=== PATIENT | female | born 1975 | race Caucasian/White ===

== ENCOUNTER 2016-12-16 11:01 | Inpatient (IN) | payer BC ==
[2016-12-15 13:42] VITALS: BMI 33.0
[~2016-12-16] VITALS: Ht 165.1 cm; Wt 87.9 kg
[2016-12-16] VITALS (27 sets, daily range): BP systolic 98–123; BP diastolic 58–79; PULSE 84–104; RESP 7–25; Ht 165.1 cm; Wt 87.9 kg
[~2016-12-16 11:01] MED LIST: CEFAZOLIN 2 GM/50 ML (PMX) 50 ML IVPB SCH; CEPH500C; D5-NS + KCL 20 MEQ 1,000 ML IV SCH; FERR-49; FLUO40CA; GEMF600T60; Metronidazole 500 MG in NS 100 ML IVPB SCH; SIMV20TA; VALA500T32
[2016-12-16] MEDS ORDERED: METHYLENE BLUE 1% 10 ML INJ ONE (12:42)
[2016-12-16] MEDS ORDERED: THROMBIN 5000 UNIT VIAL ONE (12:42)
[2016-12-16] MEDS ORDERED: VASOPRESSIN 20 UNITS INJ ONE (12:42)
[2016-12-16] MEDS ORDERED: ASC500 PO (12:54)
[2016-12-16] MEDS ORDERED: DOCU50CA PO (12:54)
[2016-12-16] MEDS ORDERED: ACYC400T2 PO (12:54)
[2016-12-16] MEDS ORDERED: ROCURONIUM 50 MG INJ ONE ×2 (13:15→14:34)
[2016-12-16] MEDS ORDERED: MIDAZOLAM 1 MG/ML 2 ML INJ ONE (13:15)
[2016-12-16] MEDS ORDERED: PROPOFOL 20 ML ONE (13:15)
[2016-12-16] MEDS ORDERED: METOCLOPRAMIDE 10 MG INJ ONE (13:15)
--- NOTE | 2016-12-16 13:21 | HPN ---
Date/Time of Note Date/Time of Note DATE: 12/16/16 TIME: 13:21 Interval H&P Admission Note Pt. seen H&P reviewed: No system changes MAX KAPADIA MD Dec 16, 2016 13:21
--- NOTE | 2016-12-16 13:30 | HP ---
Date/Time of Note Date/Time of Note DATE: 12/16/16 TIME: 13:28 Assessment/Plan VTE Prophylaxis VTE Prophylaxis Intervention: SCD's Lines/Catheters IV [facility]from [facility] Saline Lock HPI/ROS Admit Date/Time Admit Date/Time Hx of Present Illness Shawn Kapadia M.D. [facility] History and Physical Examination Elisabeth Yang December 13, 2016 Age: 41 : 1975 Physicians: Hospital Cna: Nurse Sitter: Oncologist: Other: History of the Present Illness: This is a 41 y/o female with known fibroids that are symptomatic with mneorrhagia and pain. Pap are HPV/LGSIL and negative bx. Past Medical History: G 4 P 4 Ab 0 Surgical: D&C 04/2016, Gallbladder 2008, TL 2005 Colonoscopy: never Medical: Depression Medications: 11/02/16 acyclovir 200 mg capsule 1 capsule by mouth TID 11/02/16 gemfibrozil 600 mg tablet 1 tablet by mouth BID 11/02/16 iron, carbonyl 18 mg iron chewable tablet 1 tablet by mouth DAILY Flu no, declined, Pneumococcal no, declined Allergies: No active allergies recorded Family History: Noncontributory Social History: Noncontributory Review of Systems: Negative except for above noted Physical Examination Vitals (12/13/2016): Weight 203, Height 65, BP 116/70, BMI 33.8. General: Alert. HEENT: Pupils are equal, round, reactive to light and accommodation. Neck: Supple with no masses of lymphadenopathy. Breast: Deferred due to recent examination and responsibility of primary care physician. Chest: Clear to auscultation and percussion with no rales, ronchi, or wheeze. Heart: Normal rhythm with no murmur. Abdomen: NT no mass or ascites of organomegaly Pelvis: Uterus enlarged with 12-14 wk fibroids. Cx irregular and sl friable Rectal: confirmatory with pelvic exam. Neurological: Grossly intact Assessment: symptomatic fibroids and LGSI/HPV Plan: Cx bx and as negative: TLH possible USO or BSO. All risks and benefits of this procedure have been discussed in detail with the patient, as well as alternative treatment strategies and their implications. The patient is aware that there is some possibility of a blood transfusion and its associated risks and benefits. She wishes to proceed and gives her informed consent. Shawn Kapadia M.D. PMH/Family/Social Social History Smoking Status: Never smoker Exam/Review of Systems Vital Signs Vitals Vital Signs Date Time Temp Pulse Resp B/P Pulse Ox O2 Delivery O2 Flow Rate FiO2 12/16/16 12:37 98.1 92 16 121/77 99 Room Air Medications Medications Current Medications Potassium Chloride/Dextrose/ Sod Cl 1,000 ml @ 100 mls/hr Q10H IV ; Start at 06:00; Stop 12/16/16 at 15:59 Cefazolin Sodium/ Dextrose 50 ml @ 100 mls/hr PREOP IVPB ; Start 12/16/16 at 06: 00; Stop 12/16/16 at 16:00 Metronidazole (Flagyl 500 Mg (Pmx)) 100 ml @ 100 mls/hr PREOP IVPB ; Start 12/16 at 06:00; Stop 12/16/16 at 16:00 SHAWN KAPADIA MD Dec 16, 2016 13:30
[2016-12-16] MEDS ORDERED: CEFAZOLIN 1 GM INJ ONE ×2 (14:07)
[2016-12-16] MEDS ORDERED: morphine SULFATE/PF (10 MG/10 ML) INJ ONE (14:07)
[2016-12-16] MEDS ORDERED: HYDROmorphONE 2 MG/ML SYG ONE (14:58)
[2016-12-16] MEDS ORDERED: LIDOCAINE 2%/EPI 30 ML INJ ONE (14:58)
[2016-12-16] MEDS ORDERED: METOPROLOL 5 MG INJ ONE (15:09)
[2016-12-16] MEDS ORDERED: ONDANSETRON 4 MG INJ IV PRN ×3 (16:00→18:00)
[2016-12-16] MEDS ORDERED: METOCLOPRAMIDE 10 MG INJ IV PRN (16:00)
[2016-12-16] MEDS ORDERED: hydrALAzine 20 MG INJ IV PRN (16:00)
[2016-12-16] MEDS ORDERED: LABETALOL HCL 20MG INJ IV PRN (16:00)
[2016-12-16] MEDS ORDERED: EPHEDrine SULFATE 50 MG/5 ML SYG IV PRN (16:00)
[2016-12-16] MEDS ORDERED: MEPERIDINE 25 MG INJ IV PRN (16:00)
[2016-12-16] MEDS ORDERED: DIPHENHYDRAMINE 50 MG INJ IV PRN (16:00)
[2016-12-16] MEDS ORDERED: HYDROmorphONE (0.2 MG/ML) 10ML SYG IV PRN ×2 (16:00)
[2016-12-16] MEDS ORDERED: KETOROLAC 30 MG INJ ONE (16:15)
[2016-12-16] MEDS ORDERED: GLYCOPYRROLATE 0.4 MG INJ ONE (16:15)
[2016-12-16] MEDS ORDERED: NEOSTIGMINE 3 MG/3 ML SYRINGE ONE (16:15)
[2016-12-16] MEDS ORDERED: ROPIVACAINE 0.5 % 30 ML VIAL ONE (16:29)
[2016-12-16] MEDS: HYDROmorphONE (0.2 MG/ML) 10ML SYG IV PRN ×3 (17:26→18:15)
[2016-12-16] MEDS ORDERED: HYDROmorphONE 0.2 MG/ML PCA ONE (17:50)
[2016-12-16] MEDS: HYDROmorphONE 0.2 MG/ML PCA IV SCH (17:56)
[2016-12-16] MEDS ORDERED: traMADol 50 MG TAB PO PRN (18:00)
[2016-12-16] MEDS ORDERED: ACETAMINOPHEN/CODEINE #3 TAB PO PRN ×2 (18:00)
[2016-12-16] MEDS ORDERED: NALOXONE (0.4 MG/ML) INJ IV PRN (18:00)
[2016-12-16] MEDS ORDERED: HYDROmorphONE 1 MG/ML SYG IV PRN ×3 (18:00)
[2016-12-16] MEDS ORDERED: morphine 2 MG INJ IV PRN (18:00)
[2016-12-16] MEDS ORDERED: ZOLPIDEM 5 MG TAB PO PRN (18:00)
[2016-12-16] MEDS: GEMFIBROZIL 600 MG TAB PO SCH (21:10)
[2016-12-16] MEDS: D5-LR + KCL 20 MEQ 1,000 ML IV SCH (21:20)
[2016-12-16] MEDS: CEFAZOLIN 1 GM/50 ML (PMX) 50 ML IVPB SCH (22:33)
[2016-12-17 01:45] VITALS: BP 114/60; PULSE 96; RESP 19
[2016-12-17 04:57] VITALS: BP 104/58; RESP 16
[2016-12-17] MEDS: D5-LR + KCL 20 MEQ 1,000 ML IV SCH ×2 (06:00→08:11)
[2016-12-17] MEDS: CEFAZOLIN 1 GM/50 ML (PMX) 50 ML IVPB SCH ×2 (06:36→13:44)
--- NOTE | 2016-12-17 07:40 | CONS ---
DATE OF ADMISSION: 12/16/2016 DATE OF CONSULTATION: 12/16/2016 Patient seen & chart reviewed. CC & HISTORY OF PRESENT ILLNESS: The patient is a 41-year-old female with history of known uterine fibroids, with a history of menorrhagia, lower abdominal pain and anemia, who was brought into the hospital today for elective laparoscopic hysterectomy. Patient postoperatively is breathing comfortably. Denies any chest pain. The patient is awake and responsive. No reported vomiting or shortness of breath since admission. Patient denies any numbness, tingling, or weakness in any extremity. PHYSICAL EXAMINATION GENERAL: The patient is awake. VITAL SIGNS: Temperature 98.1, pulse 92, respiratory rate 18, blood pressure 113/68, O2 saturation 100% on 2 L nasal cannula. HEENT: No eye discharge. Oropharynx clear. NECK: No mass. CHEST: Fairly clear. CARDIOVASCULAR: S1, S2 normal. No murmur. ABDOMEN: Status post laparoscopic hysterectomy. EXTREMITIES: No leg edema. NEUROLOGIC: Awake, moves all extremities and following simple commands. PREOPERATIVE LABORATORIES: Revealed a negative urine test, WBC 8.4, hemoglobin 12.1, platelets 453. Coagulation profile normal. Sodium 141, potassium 4.1, BUN 12, creatinine 0.6, glucose 94. TSH 0.9 PREOPERATIVE ELECTROCARDIOGRAM: Revealed normal sinus rhythm. No acute ST-T changes. CHEST X-RAY: Revealed scoliosis; otherwise, unremarkable. IMPRESSION 1. Symptomatic fibroids, status post laparoscopic hysterectomy. 2. Depression. 3. History of recent right eye cellulitis, status post treatment. 4. History of recurrent Herpes labialis, currently off acyclovir. 5. Dyslipidemia. The patient has been taking Lopid for that. PLAN: Patient admitted on medical floor. The patient was started on a clear liquid diet. The patient will receive IV cefazolin as per protocol. The patient also received IV Flagyl. Patient has been started on Tylenol No. 3, IV Dilaudid for pain depending upon severity. The patient is currently taking Lopid and fluoxetine, which will be resumed. Continue postop care. We will continue SCDs for DVT prophylaxis. We will continue to follow from a medical standpoint. Dictated By: VANDANA OCASIO/KIRSTEN Conf#: [id number] DID#: [id number] [facility]
[2016-12-17 07:55] VITALS: BP 97/55; RESP 20
[2016-12-17] MEDS: GEMFIBROZIL 600 MG TAB PO SCH ×2 (08:13→20:41)
[2016-12-17] MEDS: FLUOXETINE 20 MG CAP PO SCH (08:13)
[2016-12-17] MEDS: HYDROmorphONE 0.2 MG/ML PCA IV SCH ×2 (09:26→19:26)
[2016-12-17] MEDS: LEVALBUTEROL (NEB) 1.25 MG/0.5 ML AMP HHN SCH ×3 (12:30→23:00)
--- NOTE | 2016-12-17 12:41 | PN ---
DATE: 12/17/2016 INTERVAL HISTORY: The patient had mild hypoxemia earlier this morning which responded to supplement al oxygen. The patient reports that she has history of asthma, but uses inhaler rarely. Patient is currently not actively wheezing, although nurse did report that earlier she had mild wheezing. Madhuri loev did not have any chest pain, no neck pain. The patient's postoperative pain is controlled with the METALLURGICAL TESTER. No reported vomiting. PHYSICAL EXAMINATION: GENERAL: The patient is conscious, awake, alert. VITAL SIGNS: Temperature 99, pulse 105, respirations 20, blood pressure 97/55, O2 saturation 94% on 2 liters nasal cannula. NECK: No JVD. CHEST: Fairly clear. No use of accessory muscles. CARDIOVASCULAR: S1, S2 normal. No murmur. ABDOMEN: The patient is status post laparoscopic hysterectomy. EXTREMITIES: No pedal edema, no calf tenderness. SCDs in place. IMPRESSION: 1. Symptomatic uterine fibroids status post laparoscopic hysterectomy. 2. History of asthma. We will start the patient on around the clock breathing treatment. Continue sequential compression devices for deep vein thrombosis prophylaxis. 3. Depression. Continue fluoxetine. 4. Dyslipidemia. Continue Lopid. The patient remains on clear liquid diet. We will continue to f ollowup recommendations of Dr. Emery. Plan of care discussed with nursing staff. We will do followup labs. Dictated By: VANDANA OCASIO/KIRSTEN Conf#: [id number] DID#: [id number]
--- NOTE | 2016-12-17 13:34 | PN ---
Date/Time of Note Date/Time of Note DATE: 12/17/16 TIME: 13:30 Assessment/Plan VTE Prophylaxis VTE Prophylaxis Intervention: ambulation Lines/Catheters IV Catheter Type (from Nrsg): Saline Lock Urinary Cath still in place: No Subjective 24 Hr Interval Summary Free Text/Dictation Anesthesia Note: A 41 year old s/p lap hysterectomy under GA and epidural with duramorph. no headache, n/v, itching. on STRIP MACHINE TENDER, paain is controlled Exam/Review of Systems Vital Signs Vitals Vital Signs Date Time Temp Pulse Resp B/P Pulse Ox O2 Delivery O2 Flow Rate FiO2 12/17/16 11:53 Nasal Cannula 2.0 12/17/16 07:55 99.0 105 20 97/55 94 Intake and Output 12/16/16 12/16/16 12/17/16 15:00 23:00 07:00 Intake Total 1850 ml 1250 ml Output Total 500 ml 250 ml Balance 1350 ml 1000 ml Medications Medications Current Medications Tramadol HCl 50 mg 50 mg Q6H PRN PO PAIN; Start 12/16/16 at 18:00 Potassium Cl/ Dextrose/Lact Ringer's (D5-Lr + KCl 20 Meq) 1,000 ml @ 60 mls/hr [id number] IV Last administered on 12/17/16 08:11; Admin Dose 60 MLS/HR; Start 12/17/16 at 08:00 Naloxone HCl (Narcan) 0.2 mg PRN PRN IV DECREASED REPIRATORY RATE; Start at 18:00 Hydromorphone HCl (Dilaudid STRIP MACHINE TENDER) 0.2 mg Q4PCA IV Last administered on 12/17/16 09:26; Admin Dose 6 MG; Start 12/16/16 at 18:00 Acetaminophen/ Codeine Phosphate (Tylenol No.3) 1 tab Q4H PRN PO PAIN LEVEL 1-5 ; Start 12/16/16 at 18:00 Acetaminophen/ Codeine Phosphate (Tylenol No.3) 2 tab Q4H PRN PO PAIN LEVEL 6- 10; Start 12/16/16 at 18:00 Hydromorphone HCl (Dilaudid) 1 mg Q3 PRN IV BREAKTHROUGH PAIN; Start 12/16/16 at 18:00 Hydromorphone HCl (Dilaudid) 0.2 mg Q4H PRN IV PAIN LEVEL 1-5; Start 12/16/16 at 18:00 Hydromorphone HCl (Dilaudid) 0.4 mg Q4H PRN IV PAIN LEVEL 6-10; Start 12/16/16 at 18:00 Ondansetron HCl 4 mg 4 mg Q6H PRN IV NAUSEA AND/OR VOMITING; Start 12/16/16 at 18:00 Cefazolin Sodium (Ancef 1 Gm/50 ml (Pmx)) 50 ml @ 100 mls/hr Q8 IVPB Last administered on 12/17/16 06:36; Admin Dose 100 MLS/HR; Start 12/16/16 at 22:00; Stop 12/17/16 at 14:29 Ondansetron HCl (Zofran Inj) 4 mg Q6H PRN IV NAUSEA AND/OR VOMITING; Start 12/16 at 18:00 Fluoxetine HCl (Prozac) 60 mg DAILY PO Last administered on 12/17/16 08:13; Admin Dose 60 MG; Start 12/17/16 at 09:00 Gemfibrozil (Lopid) 600 mg BID PO Last administered on 12/17/16 08:13; Admin Dose 600 MG; Start 12/16/16 at 21:00 PORTIA RAGLAND MD Dec 17, 2016 13:34
--- NOTE | 2016-12-17 16:17 | PN ---
Date/Time of Note Date/Time of Note DATE: 12/17/16 TIME: 16:10 Assessment/Plan VTE Prophylaxis VTE Prophylaxis Intervention: SCD's Lines/Catheters [facility] Saline Lock Urinary Cath still in place: No Assessment/Plan Chief Complaint/Hosp Course fibroids Problems: Assessment/Plan see below Subjective 24 Hr Interval Summary Free Text/Dictation S- - Minimal SOB due to asthma and no definite flatus. Minimally OOB. O- Resp- clear CVS- nsr Abd- - soft nt Ext NT no edema A-Gradual recovery due to baseline medical issues P- mobilize and adv diet and hope top dc tomorrow Exam/Review of Systems Vital Signs Vitals Vital Signs Date Time Temp Pulse Resp B/P Pulse Ox O2 Delivery O2 Flow Rate FiO2 12/17/16 14:19 77 20 99 Nasal Cannula 2.0 12/17/16 07:55 99.0 97/55 Intake and Output 12/16/16 12/16/16 12/17/16 15:00 23:00 07:00 Intake Total 1850 ml 1250 ml Output Total 500 ml 250 ml Balance 1350 ml 1000 ml Medications Medications Current Medications Tramadol HCl 50 mg 50 mg Q6H PRN PO PAIN; Start 12/16/16 at 18:00 Potassium Cl/ Dextrose/Lact Ringer's (D5-Lr + KCl 20 Meq) 1,000 ml @ 60 mls/hr [id number] IV Last administered on 12/17/16 08:11; Admin Dose 60 MLS/HR; Start 12/17/16 at 08:00 Naloxone HCl (Narcan) 0.2 mg PRN PRN IV DECREASED REPIRATORY RATE; Start at 18:00 Hydromorphone HCl (Dilaudid LOCK EXPERT) 0.2 mg Q4PCA IV Last administered on 12/17/16 09:26; Admin Dose 6 MG; Start 12/16/16 at 18:00 Acetaminophen/ Codeine Phosphate (Tylenol No.3) 1 tab Q4H PRN PO PAIN LEVEL 1-5 ; Start 12/16/16 at 18:00 Acetaminophen/ Codeine Phosphate (Tylenol No.3) 2 tab Q4H PRN PO PAIN LEVEL 6- 10; Start 12/16/16 at 18:00 Hydromorphone HCl (Dilaudid) 1 mg Q3 PRN IV BREAKTHROUGH PAIN; Start 12/16/16 at 18:00 Hydromorphone HCl (Dilaudid) 0.2 mg Q4H PRN IV PAIN LEVEL 1-5; Start 12/16/16 at 18:00 Hydromorphone HCl (Dilaudid) 0.4 mg Q4H PRN IV PAIN LEVEL 6-10; Start 12/16/16 at 18:00 Ondansetron HCl (Zofran Inj) 4 mg Q6H PRN IV NAUSEA AND/OR VOMITING; Start 12/16 at 18:00 Ondansetron HCl (Zofran Inj) 4 mg Q6H PRN IV NAUSEA AND/OR VOMITING; Start 12/16 at 18:00 Fluoxetine HCl (Prozac) 60 mg DAILY PO Last administered on 12/17/16 08:13; Admin Dose 60 MG; Start 12/17/16 at 09:00 Gemfibrozil (Lopid) 600 mg BID PO Last administered on 12/17/16 08:13; Admin Dose 600 MG; Start 12/16/16 at 21:00 MAX KAPADIA MD Dec 17, 2016 16:17
[2016-12-17 19:59] VITALS: BP 112/65; RESP 20
[2016-12-17] MEDS ORDERED: ONDANSETRON 4 MG INJ IV PRN (23:00)
[2016-12-17] MEDS ORDERED: ZOLPIDEM 5 MG TAB PO PRN (23:30)
[2016-12-17] MEDS: ACETAMINOPHEN 650MG/20.3ML CUP PO PRN (23:38)
[2016-12-17] MEDS: metroNIDAZOLE 500 MG/NS (PMX) 100 ML IVPB SCH (23:41)
[2016-12-17] MEDS: morphine 2 MG INJ IV PRN (23:46)
[2016-12-18] MEDS: LEVOFLOXACIN 750MG/D5W (PMX) 150 ML IVPB SCH ×2 (00:48→20:53)
[2016-12-18] MEDS: D5-LR + KCL 20 MEQ 1,000 ML IV SCH ×3 (00:48→23:37)
[2016-12-18 05:33] LABS: ADD SCAN DIFF NO
[2016-12-18] MEDS: metroNIDAZOLE 500 MG/NS (PMX) 100 ML IVPB SCH ×3 (05:47→22:33)
[2016-12-18 06:00] LABS: POTASSIUM 3.3 mmol/L (3.5-5.1)
[2016-12-18 06:03] LABS: CREATININE 0.5 mg/dl (0.44-1.00)
[2016-12-18 06:04] LABS: CALCIUM 8.4 mg/dl (8.4-10.2)
[2016-12-18 06:09] LABS: BASOPHILS % 0.3 % (0.0-2.0); EOSINOPHILS # 0.1 10^3/ul (0.0-0.5); EOSINOPHILS % 0.6 % (0.0-7.0); HEMATOCRIT 28.9 % (37.0-47.0); HEMOGLOBIN 9.4 g/dl (12.0-16.0); LYMPHOCYTES # 1.7 10^3/ul (0.8-2.9); LYMPHOCYTES % 15.9 % (15.0-51.0); MEAN CORPUSCULAR HEMOGLOBIN 26.4 pg (29.0-33.0); MEAN CORPUSCULAR HGB CONC 32.5 g/dl (32.0-37.0); MEAN CORPUSCULAR VOLUME 81.2 fl (82.0-101.0); MEAN PLATELET VOLUME 10.7 fl (7.4-10.4); MONOCYTES % 9.5 % (0.0-11.0); NEUTROPHILS % 73.4 % (39.0-77.0); PLATELET COUNT 330 10^3/UL (140-415); RED BLOOD COUNT 3.56 10^6/ul (4.20-5.40); RED CELL DISTRIBUTION WIDTH 17.4 % (11.5-14.5); WHITE BLOOD COUNT 10.8 10^3/ul (4.8-10.8)
[2016-12-18] MEDS: morphine 2 MG INJ IV PRN ×3 (06:14→13:44)
[2016-12-18] MEDS: LOPERAMIDE 2 MG CAP PO PRN ×3 (06:54→17:46)
[2016-12-18 07:25] VITALS: BP 115/70; RESP 18
[2016-12-18] MEDS: LEVALBUTEROL (NEB) 1.25 MG/0.5 ML AMP HHN SCH ×3 (07:50→23:43)
[2016-12-18] MEDS: FLUOXETINE 20 MG CAP PO SCH (09:00)
[2016-12-18] MEDS: GEMFIBROZIL 600 MG TAB PO SCH ×2 (10:41→20:53)
[2016-12-18] MEDS: ACETAMINOPHEN 650MG/20.3ML CUP PO PRN (10:51)
[2016-12-18] MEDS ORDERED: VITAMIN A & D 5 GM OINT PACKET TOP ONE (13:40)
[2016-12-18] MEDS: HYDROCODONE/APAP (5/325) TAB PO PRN ×3 (15:14→23:36)
--- NOTE | 2016-12-18 16:28 | PN ---
Date/Time of Note Date/Time of Note DATE: 12/18/16 TIME: 16:23 Assessment/Plan VTE Prophylaxis VTE Prophylaxis Intervention: SCD's Lines[facility] Urinary Cath still in place: No Assessment/Plan Assessment/Plan 1. Symptomatic uterine fibroids status post laparoscopic hysterectomy. 2. History of asthma. Continue breathing treatment as needed for shortness of breath 3. Depression. Continue fluoxetine. 4. Dyslipidemia. Continue Lopid. 5. Diarrhea most likely secondary to bowel prep prior to surgery. Started on Flagyl. Further recommendations based on clinical course. Plan of care discussed with Dr. Casey. Subjective 24 Hr Interval Summary Free Text/Dictation Patient's complains of diarrhea and generalized weakness, low-grade fever in a.m. Constitutional: febrile Exam/Review of Systems Vital Signs Vitals Vital Signs Date Time Temp Pulse Resp B/P Pulse Ox O2 Delivery O2 Flow Rate FiO2 12/18/16 15:50 103 20 98 Nasal Cannula 2.0 12/18/16 13:34 99.0 12/18/16 07:25 115/70 Intake and Output 12/17/16 12/17/16 12/18/16 15:00 23:00 07:00 Intake Total 300 ml 2160 ml 1090 ml Balance 300 ml 2160 ml 1090 ml Exam Constitutional: alert, oriented, well developed Psych: no complaints Head: atraumatic, normocephalic Eyes: nl conjunctiva ENMT: nl external ears & nose Neck: non-tender, supple Respiratory: clear to auscultation, normal air movement Cardiovascular: nl pulses, regular rate and rhythm Gastrointestinal: other (Status post laparoscopic surgery), soft Musculoskeletal: nl extremities to inspection Extremities: normal pulses Neurological: INSPECTOR ALIGNING II-XII intact Results Result Diagram: 12/18/16 04512/18/16 0452 Results 24 hrs Laboratory Tests Test 12/18/16 04:50 12/18/16 04:52 White Blood Count 10.8 Red Blood Count 3.56 L Hemoglobin 9.4 L Hematocrit 28.9 L Mean Corpuscular Volume 81.2 L Mean Corpuscular Hemoglobin 26.4 L Mean Corpuscular Hemoglobin Concent 32.5 Red Cell Distribution Width 17.4 H Platelet Count 330 Mean Platelet Volume 10.7 #H Neutrophils % 73.4 Lymphocytes % 15.9 Monocytes % 9.5 Eosinophils % 0.6 Basophils % 0.3 Nucleated Red Blood Cells % 0.0 Neutrophils # 8.0 H Lymphocytes # 1.7 Monocytes # 1.0 H Eosinophils # 0.1 Basophils # 0.0 Nucleated Red Blood Cells # 0.0 Sodium Level 138 Potassium Level 3.3 L Chloride Level 103 Carbon Dioxide Level 21 Anion Gap 17 H Blood Urea Nitrogen 4 L Creatinine 0.50 Glucose Level 113 Calcium Level 8.4 Medications Medications Current Medications Tramadol HCl 50 mg 50 mg Q6H PRN PO PAIN; Start 12/16/16 at 18:00 Potassium Cl/ Dextrose/Lact Ringer's (D5-Lr + KCl 20 Meq) 1,000 ml @ 60 mls/hr [id number] IV Last administered on 12/18/16 00:48; Admin Dose 60 MLS/HR; Start 12/17/16 at 08:00 Ondansetron HCl (Zofran Inj) 4 mg Q6H PRN IV NAUSEA AND/OR VOMITING; Start 12/16 at 18:00 Fluoxetine HCl (Prozac) 60 mg DAILY PO Last administered on 12/17/16 08:13; Admin Dose 60 MG; Start 12/17/16 at 09:00 Gemfibrozil (Lopid) 600 mg BID PO Last administered on 12/18/16 10:41; Admin Dose 600 MG; Start 12/16/16 at 21:00 Ondansetron HCl (Zofran Inj) 4 mg Q6H PRN IV NAUSEA AND/OR VOMITING; Start 12/17 at 23:00 Morphine Sulfate 2 mg 2 mg Q2H PRN IV PAIN Last administered on 12/18/16 13:44 ; Admin Dose 2 MG; Start 12/17/16 at 23:00 Levofloxacin/ Dextrose 150 ml @ 100 mls/hr QPM IVPB Last administered on 00:48; Admin Dose 100 MLS/HR; Start 12/17/16 at 23:30 Metronidazole (Flagyl 500 Mg (Pmx)) 100 ml @ 100 mls/hr Q8 IVPB Last administered on 12/18/16 13:44; Admin Dose 100 MLS/HR; Start 12/17/16 at 23:00 Acetaminophen (Tylenol Liquid) 650 mg Q4H PRN PO PAIN AND OR ELEVATED TEMP Last administered on 12/18/16 10:51; Admin Dose 650 MG; Start 12/17/16 at 23:30 Zolpidem Tartrate (Ambien) 5 mg HS PRN PO INSOMNIA; Start 12/17/16 at 23:30 Loperamide HCl (Imodium Cap) 2 mg Q6H PRN PO DIARRHEA Last administered on 10:50; Admin Dose 2 MG; Start 12/18/16 at 07:00 Acetaminophen/ Hydrocodone Bitart (Pharr (5/325)) 1 tab Q4H PRN PO PAIN Last administered on 12/18/16 15:14; Admin Dose 1 TAB; Start 12/18/16 at 15:00 ADELIA LYNN Dec 18, 2016 16:28
[2016-12-18] MEDS ORDERED: POTASSIUM CHLORIDE (SR) 20 MEQ TAB PO STA (16:50)
[2016-12-18 20:14] VITALS: BP 115/59; RESP 18
--- NOTE | 2016-12-18 21:55 | OPR ---
Date/Time of Note Date/Time of Note DATE: 12/18/16 TIME: 21:54 Operative Report Free Text/Dictation OPERATIVE REPORT [facility] Name: Elisabeth Yang Medical Date: 12/16/16 Preoperative Diagnosis: Menorrhagia with uterine enlargement; fibroids a/o adenomyosis Postoperative Diagnosis: 1- Probable adenomyosis 2- Multiple fibroids 3- Ureteral stricture Procedures: 1- Laparoscopic subtotal hysterectomy 2- Bilateral ureteral dissection with repositioning 3- Retroperitoneal uterine artery ligation Surgeon: Dr. Emery Care Transition Manager: Dr. Puente Anesthesia: General with regional Indikation for Procedure: The patient is a 41- year old female with a large symptomatic pelvic mass consistent with symptomatic fibroids and/or adenomyosis and a history of PAP smears with ADALBERTO I an HPV but no finings. After considering all options with risks and benefits a laproscopic hysterectomy with bilateral salpingectomy was chosen with possible staging. Findings and Summary The patient was laparoscoped and found to have large hypervascular fibroids with probable adenomyosis that were distorting the retroperitoneal anatomy and vasculature significantly. Therefore it was necessary to open the retroperitoneum bilaterally and dissect and reposition the ureters bilaterally for the purposes of access to the lower uterine segment and the vasculature. Due to additional anatomic distortion by the enlarged uterus and hypervascularity and anatomy precluding access to the lower uterine segment vessels, the uterine arteries were clipped bilaterally immediately distal to the branching of the hypogastrics. The laparoscopic hysterectomy with bilateral salpingectomy was then completed without incident. Procedure: After being prepped and draped in the usual manner an EEA sizer and pneumo- occluder was inserted vaginally was placed in the vagina. A 5-millimeter trocar was then placed immediately cephlad to the umbilicus without incident. Subsequently, we insufflated and placed two 5 millimeter trocars laterally and a 12 millimeter trocar suprapubically with unusual vasculature. At this time any pelvic adhesions were lysed with sharp dissection. Subsequently we explored and noted the adnexia to be grossly within normal limits in appearance but there was significant uterine enlargement from probable fibroids and adenomyosis and hypervascularity, all distorting the retroperitoneal anatomy significantly, all necessitating a ureteral dissection with repositioning. Initially the right round ligament was transected with the Thunderbeat and the retroperitoneal spaced opened parallel to the IP ligament and laterally with the same devise and Omni. The ureter was identified and because of the fibroids and a retroperitoneal mass required a specific dissection and repositioning. The ureter was bluntly dissected away from the enlarged uterus and broad ligament with an Omni, and carefully repositioned lateral to the broad ligament. Because of some oozing and because the anatomy of the uterus resulted in displacement of the vessels laterally and due to anatomy precluding access to the lower uterine segment vessels, it mandated that we isolate the uterine artery and vein adjacent to the ureter that was lateralized to the level of the hypogastric artery using the endo-dissector and Omni for hemostasis with the previously dissected ureter visualized. Therefore in this case the uterine artery was hemoclipped immediately distal to the branching of the hypogastric and at the [facility] bifurcation of the hypogastric, proximal to the branching of the uterine and obliterated umbilical; salvaging both observed superior and inferior vesicle while controlling the entire uterine with associated collateral branches. At this time the right fallopian tube was dissected from the tubal mesentery with the Thunderbeat and Omni, after which the triple pedicle was desiccated and transected with the Thunderbeat. Subsequently, the left round ligament was transected with a Gyrus bipolar cutting forceps and Thunderbeat and the retroperitoneum opened parallel to the infundibulo-pelvic (IP) ligament with a Gyrus bipolar cutting forceps and Omni. The ureteral dissection with repositioning was undertaken. The ureter was dissected away from the peritoneum with adjacent uterus and repositioned with care using the endo-dissector and Omni bluntly, again with the dissection being somewhat required due to some distortion of the retroperitoneum by the large uterus with fibroids. This process was carried out throughout the ureteral length in the pelvis and it peristalsed normally once repositioned. Again, because of hypervascularity and because the anatomy of the mass resulted in displacement of the vessels laterally and anatomy precluded access to the lower uterine segment vessels it mandated that we isolate the uterine artery and vein adjacent to the ureter that was lateralized to the level of the hypogastric artery using the endo- dissector and Omni for hemostasis with the previously dissected ureter visualized. Therefore in this case the uterine artery was hemoclipped immediately distal to the branching of the hypogastric and at the bifurcation of the hypogastric, proximal to the branching of the uterine and obliterated umbilical; salvaging both observed superior and inferior vesicle while controlling the entire uterine with associated collateral branches. At this time the left fallopian tube was removed as noted contralaterally and the triple pedicle was desiccated and transected with the Thunderbeat. At this time a corkscrew was placed in the aforementioned fibroids and the mass dissected away from the areolar tissue and ureter as well as vascular structures in the retroperitoneum with the endo-dissector and Omni in not near thermal sensitive structures. We then used a cork screw manipulator placed through the 12-mm suprapubic trocar to manipulate the [facility] uterus allowing development or the bladder flap uneventfully with the Gyrus Cutting Forceps and Omni and blunt dissection. The right uterine artery was transected with a Thunderbeat perpendicular to the very distal lower uterine segment and the Cardinal ligament and utero-sacral ligament were both transected with a Thunderbeat parallel to the lower uterine segment and cervix via the contralateral trocar site. An identical series of steps were taken on the left side. Hence, the vagina was entered and a colpotomy anterior and posteriorly with the Thunderbeat, after which the uterus was removed from the vagna with the Omni and Thunderbeat and hemostasis confirmed. The uterus was removed and negative frozen section and the vagina was closed with interrupted 0 - Vicryl suture and continuous 2-0 strata-fix suture. After irrigating and assuring hemostasis the 12 millimeter trocar was removed and the fascia was closed with 0-vicryl using an endo-close devise. The gas was removed and the skin of all sites then closed with 3-0 Vicryl suture subcutaneously and interrupted 5-0 Plain Gut cutaneous. The EBL was 200 cc and the patient tolerated the procedure well and left the OR in good condition. Shawn Emery M.D. SHAWN EMERY MD Dec 18, 2016 21:55
--- NOTE | 2016-12-18 22:00 | PN ---
Date/Time of Note Date/Time of Note DATE: 12/18/16 TIME: 21:58 Assessment/Plan VTE Prophylaxis VTE Prophylaxis Intervention: SCD's Lines/Catheters IV [facility] Type (from [facility] Saline Lock Urinary Cath still in place: No Assessment/Plan Chief Complaint/Hosp Course fibroids Problems: Assessment/Plan see below Subjective 24 Hr Interval Summary Free Text/Dictation S- - Feels better but diarrhea O- Resp- clear CVS- nsr Abd- - soft nt Ext NT no edema A-Gradual recovery due to baseline medical issues and now diarrhea P- mobilize and adv diet and stool for C. diff Exam/Review of Systems Vital Signs Vitals Vital Signs Date Time Temp Pulse Resp B/P Pulse Ox O2 Delivery O2 Flow Rate FiO2 12/18/16 20:14 98.8 97 18 115/59 100 12/18/16 15:50 Nasal Cannula 2.0 Intake and Output 12/17/16 12/17/16 12/18/16 15:00 23:00 07:00 Intake Total 300 ml 2160 ml 1190 ml Balance 300 ml 2160 ml 1190 ml Results Result Diagram: 12/18/16 0450 12/18/16 0452 Results 24 hrs Laboratory Tests Test 12/18/16 04:50 12/18/16 04:52 White Blood Count 10.8 Red Blood Count 3.56 L Hemoglobin 9.4 L Hematocrit 28.9 L Mean Corpuscular Volume 81.2 L Mean Corpuscular Hemoglobin 26.4 L Mean Corpuscular Hemoglobin Concent 32.5 Red Cell Distribution Width 17.4 H Platelet Count 330 Mean Platelet Volume 10.7 #H Neutrophils % 73.4 Lymphocytes % 15.9 Monocytes % 9.5 Eosinophils % 0.6 Basophils % 0.3 Nucleated Red Blood Cells % 0.0 Neutrophils # 8.0 H Lymphocytes # 1.7 Monocytes # 1.0 H Eosinophils # 0.1 Basophils # 0.0 Nucleated Red Blood Cells # 0.0 Sodium Level 138 Potassium Level 3.3 L Chloride Level 103 Carbon Dioxide Level 21 Anion Gap 17 H Blood Urea Nitrogen 4 L Creatinine 0.50 Glucose Level 113 Calcium Level 8.4 Medications Medications Current Medications Tramadol HCl 50 mg 50 mg Q6H PRN PO PAIN; Start 12/16/16 at 18:00 Potassium Cl/ Dextrose/Lact Ringer's (D5-Lr + KCl 20 Meq) 1,000 ml @ 60 mls/hr [id number] IV Last administered on 12/18/16 00:48; Admin Dose 60 MLS/HR; Start 12/17/16 at 08:00 Ondansetron HCl (Zofran Inj) 4 mg Q6H PRN IV NAUSEA AND/OR VOMITING; Start 12/16 at 18:00 Fluoxetine HCl (Prozac) 60 mg DAILY PO Last administered on 12/17/16 08:13; Admin Dose 60 MG; Start 12/17/16 at 09:00 Gemfibrozil (Lopid) 600 mg BID PO Last administered on 12/18/16 20:53; Admin Dose 600 MG; Start 12/16/16 at 21:00 Ondansetron HCl (Zofran Inj) 4 mg Q6H PRN IV NAUSEA AND/OR VOMITING; Start 12/17 at 23:00 Morphine Sulfate 2 mg 2 mg Q2H PRN IV PAIN Last administered on 12/18/16 13:44 ; Admin Dose 2 MG; Start 12/17/16 at 23:00 Levofloxacin/ Dextrose 150 ml @ 100 mls/hr QPM IVPB Last administered on 20:53; Admin Dose 100 MLS/HR; Start 12/17/16 at 23:30 Metronidazole (Flagyl 500 Mg (Pmx)) 100 ml @ 100 mls/hr Q8 IVPB Last administered on 12/18/16 13:44; Admin Dose 100 MLS/HR; Start 12/17/16 at 23:00 Acetaminophen (Tylenol Liquid) 650 mg Q4H PRN PO PAIN AND OR ELEVATED TEMP Last administered on 12/18/16 10:51; Admin Dose 650 MG; Start 12/17/16 at 23:30 Zolpidem Tartrate (Ambien) 5 mg HS PRN PO INSOMNIA; Start 12/17/16 at 23:30 Loperamide HCl (Imodium Cap) 2 mg Q6H PRN PO DIARRHEA Last administered on 17:46; Admin Dose 2 MG; Start 12/18/16 at 07:00 Acetaminophen/ Hydrocodone Bitart ([place] (5/325)) 1 tab Q4H PRN PO PAIN Last administered on 12/18/16 19:38; Admin Dose 1 TAB; Start 12/18/16 at 15:00 MAX KAPADIA MD Dec 18, 2016 22:00
[2016-12-19] MEDS: metroNIDAZOLE 500 MG/NS (PMX) 100 ML IVPB SCH ×2 (05:40→15:50)
[2016-12-19] MEDS: HYDROCODONE/APAP (5/325) TAB PO PRN ×4 (05:44→22:02)
[2016-12-19 06:27] LABS: ADD SCAN DIFF NO
[2016-12-19 06:43] LABS: INR 1.13; PROTIME 14.5 Sec (12.2-14.2); PT RATIO 1.1
[2016-12-19 07:10] LABS: POTASSIUM 3.6 mmol/L (3.5-5.1)
[2016-12-19 07:13] LABS: CREATININE 0.58 mg/dl (0.44-1.00)
[2016-12-19 07:14] LABS: CALCIUM 8.7 mg/dl (8.4-10.2)
[2016-12-19 07:21] LABS: BASOPHILS % 0.4 % (0.0-2.0); EOSINOPHILS # 0.2 10^3/ul (0.0-0.5); EOSINOPHILS % 1.8 % (0.0-7.0); HEMATOCRIT 29.2 % (37.0-47.0); HEMOGLOBIN 9.3 g/dl (12.0-16.0); LYMPHOCYTES # 2.2 10^3/ul (0.8-2.9); LYMPHOCYTES % 26.7 % (15.0-51.0); MEAN CORPUSCULAR HEMOGLOBIN 26.3 pg (29.0-33.0); MEAN CORPUSCULAR HGB CONC 31.8 g/dl (32.0-37.0); MEAN CORPUSCULAR VOLUME 82.7 fl (82.0-101.0); MEAN PLATELET VOLUME 10.5 fl (7.4-10.4); MONOCYTE # 0.8 10^3/ul (0.3-0.9); NEUTROPHILS % 60.6 % (39.0-77.0); PLATELET COUNT 346 10^3/UL (140-415); RED BLOOD COUNT 3.53 10^6/ul (4.20-5.40); RED CELL DISTRIBUTION WIDTH 17.6 % (11.5-14.5); WHITE BLOOD COUNT 8.2 10^3/ul (4.8-10.8)
[2016-12-19] MEDS: LEVALBUTEROL (NEB) 1.25 MG/0.5 ML AMP HHN SCH ×3 (08:00→23:41)
[2016-12-19 08:17] VITALS: BP 111/67; RESP 22
[2016-12-19] MEDS: FLUOXETINE 20 MG CAP PO SCH (09:00)
[2016-12-19] MEDS: GEMFIBROZIL 600 MG TAB PO SCH ×2 (09:52→20:25)
--- NOTE | 2016-12-19 17:15 | PN ---
Date/Time of Note Date/Time of Note DATE: 12/19/16 TIME: 17:13 Assessment/Plan VTE Prophylaxis VTE Prophylaxis Intervention: SCD's Lines/Catheters IV Catheter Type (from [facility]): Saline Lock Urinary Cath still in place: No Assessment/Plan Assessment/Plan 1. Symptomatic uterine fibroids status post laparoscopic hysterectomy. 2. History of asthma. Continue breathing treatment as needed for shortness of breath 3. Depression. Continue fluoxetine. 4. Dyslipidemia. Continue Lopid. 5. Diarrhea most likely secondary to bowel prep prior to surgery. Started on Flagyl. Further recommendations based on clinical course. Plan of care discussed with Dr. Casey. Subjective 24 Hr Interval Summary Constitutional: improved Eyes: no complaints ENT: no complaints Respiratory: no complaints Cardiovascular: no complaints Gastrointestinal: no complaints Genitourinary: no complaints Musculoskeletal: no complaints Skin: no complaints Exam/Review of Systems Vital Signs Vitals Vital Signs Date Time Temp Pulse Resp B/P Pulse Ox O2 Delivery O2 Flow Rate FiO2 12/19/16 15:41 95 22 98 21 12/19/16 08:17 98.9 111/67 12/18/16 20:00 Nasal Cannula 2.0 Intake and Output 12/18/16 12/18/16 12/19/16 15:00 23:00 07:00 Intake Total 100 ml 1670 ml 2000 ml Balance 100 ml 1670 ml 2000 ml Exam Constitutional: alert, oriented Psych: nl mood/affect Eyes: EOMI, PERRL, nl conjunctiva, nl sclera ENMT: nl external ears & nose Respiratory: clear to auscultation Cardiovascular: nl pulses Gastrointestinal: non-tender, soft Musculoskeletal: nl extremities to inspection Neurological: nl mental status, nl speech Skin: nl turgor Lymph: nontender Results Result Diagram: 12/19/16 0502 12/19/16 0502 Results 24 hrs Laboratory Tests Test 12/19/16 05:02 White Blood Count 8.2 # Red Blood Count 3.53 L Hemoglobin 9.3 L Hematocrit 29.2 L Mean Corpuscular Volume 82.7 Mean Corpuscular Hemoglobin 26.3 L Mean Corpuscular Hemoglobin Concent 31.8 L Red Cell Distribution Width 17.6 H Platelet Count 346 Mean Platelet Volume 10.5 H Neutrophils % 60.6 Lymphocytes % 26.7 Monocytes % 10.0 Eosinophils % 1.8 Basophils % 0.4 Nucleated Red Blood Cells % 0.0 Neutrophils # 5.0 Lymphocytes # 2.2 Monocytes # 0.8 Eosinophils # 0.2 Basophils # 0.0 Nucleated Red Blood Cells # 0.0 Prothrombin Time 14.5 H Prothrombin Time Ratio 1.1 INR International Normalized Ratio 1.13 Sodium Level 139 Potassium Level 3.6 Chloride Level 103 Carbon Dioxide Level 25 Anion Gap 15 Blood Urea Nitrogen 4 L Creatinine 0.58 Glucose Level 97 Calcium Level 8.7 Medications Medications Current Medications Tramadol HCl 50 mg 50 mg Q6H PRN PO PAIN; Start 12/16/16 at 18:00 Potassium Cl/ Dextrose/Lact Ringer's (D5-Lr + KCl 20 Meq) 1,000 ml @ 60 mls/hr [id number] IV Last administered on 12/18/16 23:37; Admin Dose 60 MLS/HR; Start 12/17/16 at 08:00 Ondansetron HCl (Zofran Inj) 4 mg Q6H PRN IV NAUSEA AND/OR VOMITING Last administered on 12/19/16 10:02; Admin Dose 4 MG; Start 12/16/16 at 18:00 Fluoxetine HCl (Prozac) 60 mg DAILY PO Last administered on 12/17/16 08:13; Admin Dose 60 MG; Start 12/17/16 at 09:00 Gemfibrozil (Lopid) 600 mg BID PO Last administered on 12/19/16 09:52; Admin Dose 600 MG; Start 12/16/16 at 21:00 Ondansetron HCl (Zofran Inj) 4 mg Q6H PRN IV NAUSEA AND/OR VOMITING; Start 12/17 at 23:00 Morphine Sulfate 2 mg 2 mg Q2H PRN IV PAIN Last administered on 12/18/16 13:44 ; Admin Dose 2 MG; Start 12/17/16 at 23:00 Levofloxacin/ Dextrose 150 ml @ 100 mls/hr QPM IVPB Last administered on 20:53; Admin Dose 100 MLS/HR; Start 12/17/16 at 23:30 Metronidazole (Flagyl 500 Mg (Pmx)) 100 ml @ 100 mls/hr Q8 IVPB Last administered on 12/19/16 15:50; Admin Dose 100 MLS/HR; Start 12/17/16 at 23:00 Acetaminophen (Tylenol Liquid) 650 mg Q4H PRN PO PAIN AND OR ELEVATED TEMP Last administered on 12/18/16 10:51; Admin Dose 650 MG; Start 12/17/16 at 23:30 Zolpidem Tartrate (Ambien) 5 mg HS PRN PO INSOMNIA; Start 12/17/16 at 23:30 Loperamide HCl (Imodium Cap) 2 mg Q6H PRN PO DIARRHEA Last administered on 17:46; Admin Dose 2 MG; Start 12/18/16 at 07:00 Acetaminophen/ Hydrocodone Bitart ([place] (5/325)) 1 tab Q4H PRN PO PAIN Last administered on 12/19/16 09:53; Admin Dose 1 TAB; Start 12/18/16 at 15:00 TRAVIS HERRERA Dec 19, 2016 17:15
--- NOTE | 2016-12-19 19:12 | PN ---
Date/Time of Note Date/Time of Note DATE: 12/19/16 TIME: 19:11 Assessment/Plan VTE Prophylaxis VTE Prophylaxis Intervention: SCD's Lines/Catheters IV Catheter Type (from Nrs): Saline Lock Urinary Cath still in place: No Assessment/Plan Chief Complaint/Hosp Course fibroids Problems: Assessment/Plan A- Doing well P- Mobilize more and advance diet. change abx to oral Subjective 24 Hr Interval Summary Free Text/Dictation S- Pain adequately controlled and + flatus. More notably OOB. O- Resp- symmetric and no pain CVS- NSR Abd- Soft, minimal distension, NT,wound clean Ext- NT no edema A- Doing well P- Mobilize more and advance diet. change abx to oral Exam/Review of Systems Vital Signs Vitals Vital Signs Date Time Temp Pulse Resp B/P Pulse Ox O2 Delivery O2 Flow Rate FiO2 12/19/16 15:41 95 22 98 21 12/19/16 08:17 98.9 111/67 12/18/16 20:00 Nasal Cannula 2.0 Intake and Output 12/18/16 12/18/16 12/19/16 15:00 23:00 07:00 Intake Total 100 ml 1670 ml 2000 ml Balance 100 ml 1670 ml 2000 ml Results Result Diagram: 12/19/16 0502 12/19/16 0502 Results 24 hrs Laboratory Tests Test 12/19/16 05:02 White Blood Count 8.2 # Red Blood Count 3.53 L Hemoglobin 9.3 L Hematocrit 29.2 L Mean Corpuscular Volume 82.7 Mean Corpuscular Hemoglobin 26.3 L Mean Corpuscular Hemoglobin Concent 31.8 L Red Cell Distribution Width 17.6 H Platelet Count 346 Mean Platelet Volume 10.5 H Neutrophils % 60.6 Lymphocytes % 26.7 Monocytes % 10.0 Eosinophils % 1.8 Basophils % 0.4 Nucleated Red Blood Cells % 0.0 Neutrophils # 5.0 Lymphocytes # 2.2 Monocytes # 0.8 Eosinophils # 0.2 Basophils # 0.0 Nucleated Red Blood Cells # 0.0 Prothrombin Time 14.5 H Prothrombin Time Ratio 1.1 INR International Normalized Ratio 1.13 Sodium Level 139 Potassium Level 3.6 Chloride Level 103 Carbon Dioxide Level 25 Anion Gap 15 Blood Urea Nitrogen 4 L Creatinine 0.58 Glucose Level 97 Calcium Level 8.7 Medications Medications Current Medications Tramadol HCl 50 mg 50 mg Q6H PRN PO PAIN; Start 12/16/16 at 18:00 Potassium Cl/ Dextrose/Lact Ringer's (D5-Lr + KCl 20 Meq) 1,000 ml @ 60 mls/hr [id number] IV Last administered on 12/18/16 23:37; Admin Dose 60 MLS/HR; Start 12/17/16 at 08:00 Ondansetron HCl (Zofran Inj) 4 mg Q6H PRN IV NAUSEA AND/OR VOMITING Last administered on 12/19/16 10:02; Admin Dose 4 MG; Start 12/16/16 at 18:00 Fluoxetine HCl (Prozac) 60 mg DAILY PO Last administered on 12/17/16 08:13; Admin Dose 60 MG; Start 12/17/16 at 09:00 Gemfibrozil (Lopid) 600 mg BID PO Last administered on 12/19/16 09:52; Admin Dose 600 MG; Start 12/16/16 at 21:00 Ondansetron HCl (Zofran Inj) 4 mg Q6H PRN IV NAUSEA AND/OR VOMITING; Start 12/17 at 23:00 Morphine Sulfate 2 mg 2 mg Q2H PRN IV PAIN Last administered on 12/18/16 13:44 ; Admin Dose 2 MG; Start 12/17/16 at 23:00 Levofloxacin/ Dextrose 150 ml @ 100 mls/hr QPM IVPB Last administered on 20:53; Admin Dose 100 MLS/HR; Start 12/17/16 at 23:30 Metronidazole (Flagyl 500 Mg (Pmx)) 100 ml @ 100 mls/hr Q8 IVPB Last administered on 12/19/16 15:50; Admin Dose 100 MLS/HR; Start 12/17/16 at 23:00 Acetaminophen (Tylenol Liquid) 650 mg Q4H PRN PO PAIN AND OR ELEVATED TEMP Last administered on 12/18/16 10:51; Admin Dose 650 MG; Start 12/17/16 at 23:30 Zolpidem Tartrate (Ambien) 5 mg HS PRN PO INSOMNIA; Start 12/17/16 at 23:30 Loperamide HCl (Imodium Cap) 2 mg Q6H PRN PO DIARRHEA Last administered on 4/7/ 17at 17:46; Admin Dose 2 MG; Start 12/18/16 at 07:00 Acetaminophen/ Hydrocodone Bitart ([place] (5/325)) 1 tab Q4H PRN PO PAIN Last administered on 12/19/16t 17:54; Admin Dose 1 TAB; Start 12/18/16 at 15:00 MAX KAPADIA MD Dec 19, 2016 19:12
[2016-12-19 19:54] VITALS: BP 115/63; RESP 20
[2016-12-19] MEDS: D5-LR + KCL 20 MEQ 1,000 ML IV SCH (20:24)
[2016-12-19] MEDS ORDERED: LEVOFLOXACIN 750 MG TABLET PO SCH (21:00)
[2016-12-19] MEDS: metroNIDAZOLE 250 MG TAB PO SCH (22:02)
[2016-12-20] MEDS: HYDROCODONE/APAP (5/325) TAB PO PRN ×2 (06:19→13:47)
[2016-12-20] MEDS: metroNIDAZOLE 250 MG TAB PO SCH ×2 (06:19→13:47)
[2016-12-20 06:50] LABS: ADD SCAN DIFF NO; BASOPHIL # 0.1 10^3/ul (0.0-0.1); BASOPHILS % 0.6 % (0.0-2.0); EOSINOPHILS # 0.2 10^3/ul (0.0-0.5); EOSINOPHILS % 2.7 % (0.0-7.0); HEMATOCRIT 32.4 % (37.0-47.0); HEMOGLOBIN 10.2 g/dl (12.0-16.0); LYMPHOCYTES % 23.9 % (15.0-51.0); MEAN CORPUSCULAR HGB CONC 31.5 g/dl (32.0-37.0); MEAN CORPUSCULAR VOLUME 82.7 fl (82.0-101.0); MEAN PLATELET VOLUME 10.1 fl (7.4-10.4); MONOCYTE # 0.9 10^3/ul (0.3-0.9); MONOCYTES % 10.6 % (0.0-11.0); NEUTROPHIL # 5.3 10^3/ul (1.6-7.5); PLATELET COUNT 387 10^3/UL (140-415); RED BLOOD COUNT 3.92 10^6/ul (4.20-5.40); RED CELL DISTRIBUTION WIDTH 17.6 % (11.5-14.5); WHITE BLOOD COUNT 8.5 10^3/ul (4.8-10.8)
[2016-12-20 06:57] LABS: POTASSIUM 4.4 mmol/L (3.5-5.1)
[2016-12-20 07:22] LABS: CREATININE 0.54 mg/dl (0.44-1.00)
[2016-12-20 07:47] VITALS: BP 100/58; RESP 18
[2016-12-20] MEDS: GEMFIBROZIL 600 MG TAB PO SCH (08:15)
[2016-12-20] MEDS: FLUOXETINE 20 MG CAP PO SCH ×3 (08:15→09:00)
[2016-12-20] MEDS: LEVALBUTEROL (NEB) 1.25 MG/0.5 ML AMP HHN SCH (08:42)
--- NOTE | 2016-12-20 12:39 | PDOCDIS ---
Discharge Instructions CONDITION Patient Condition: Stable HOME CARE INSTRUCTIONS: Special Diet: soft FOLLOW UP/APPOINTMENTS Appointments FU with primary MD x week FU with ob surgery as recommended Call 911 or go to the hospital if symptoms get worse. Patient verbalized understanding discharge instructions. dw staff TRAVIS HERRERA Dec 20, 2016 12:38
[2016-12-20] MEDS ORDERED: HYDR-3498 PO (12:58)
[2016-12-20] MEDS ORDERED: FLUC200T52 PO (12:58)
[2016-12-20] MEDS ORDERED: METR250T PO (12:58)
[2016-12-20] MEDS ORDERED: LEVO750T25 PO (12:58)
[2016-12-20] MEDS ORDERED: FLUCONAZOLE 200 MG TAB PO SCH (13:00)
[2016-12-20] MEDS ORDERED: PANT40SU PO (13:01)
[2016-12-20] MEDS ORDERED: DOCU-144 PO (13:01)
--- NOTE | 2016-12-20 13:11 | DS ---
Date/Time of Note Date/Time of Note DATE: 12/20/16 TIME: 13:11 Discharge Summary Admission/Discharge Info Admit Date/Time Dec 16, 2016 at 17:24 Discharge Date/Time Hx of Present Illness Shawn Emery M.D. [facility] History and Physical Examination Elisabeth Yang December 13, 2016 Age: 41 : 1975 Physicians: Test Engineer Nuclear Equipment: Graphic Art Sales Representative: Oncologist: Other: History of the Present Illness: This is a 41 y/o female with known fibroids that are symptomatic with mneorrhagia and pain. Pap are HPV/LGSIL and negative bx. Past Medical History: G 4 P 4 Ab 0 Surgical: D&C 04/2016, Gallbladder 2008, TL 2005 Colonoscopy: never Medical: Depression Medications: 11/02/16 acyclovir 200 mg capsule 1 capsule by mouth TID 11/02/16 gemfibrozil 600 mg tablet 1 tablet by mouth BID 11/02/16 iron, carbonyl 18 mg iron chewable tablet 1 tablet by mouth DAILY Flu no, declined, Pneumococcal no, declined Allergies: No active allergies recorded Family History: Noncontributory Social History: Noncontributory Review of Systems: Negative except for above noted Physical Examination Vitals (12/13/2016): Weight 203, Height 65, BP 116/70, BMI 33.8. General: Alert. HEENT: Pupils are equal, round, reactive to light and accommodation. Neck: Supple with no masses of lymphadenopathy. Breast: Deferred due to recent examination and responsibility of primary care physician. Chest: Clear to auscultation and percussion with no rales, ronchi, or wheeze. Heart: Normal rhythm with no murmur. Abdomen: NT no mass or ascites of organomegaly Pelvis: Uterus enlarged with 12-14 wk fibroids. Cx irregular and sl friable Rectal: confirmatory with pelvic exam. Neurological: Grossly intact Assessment: symptomatic fibroids and LGSI/HPV Plan: Cx bx and as negative: TLH possible USO or BSO. All risks and benefits of this procedure have been discussed in detail with the patient, as well as alternative treatment strategies and their implications. The patient is aware that there is some possibility of a blood transfusion and its associated risks and benefits. She wishes to proceed and gives her informed consent. Shawn Emery M.D. Hospital Course fibroids Home Meds Active Scripts Pantoprazole Sodium (Protonix) 40 Mg , 40 MG PO DAILY for 14 Days Prov:RTAVIS HERRERA 12/20/16 Docusate Sodium* (Colace*) 100 Mg Capsule, 100 MG PO BID, #60 CAP Prov:TRAVIS HERRERA 12/20/16 Metronidazole* (Flagyl*) 250 Mg Tablet, 250 MG PO Q8 for 5 Days, TAB Prov:TRAVIS HERRERA 12/20/16 Levofloxacin* (Levaquin*) 750 Mg Tablet, 750 MG PO HS for 5 Days, TAB Prov:TRAVIS HERRERA 12/20/16 Hydrocodone Bit-Acetaminophen (Hydrocodone Bit-APAP) 5-325MG Tablet, 1 TAB PO Q4H Y for PAIN, #14 TAB Prov:TRAVIS HERRERA 12/20/16 Fluconazole* (Fluconazole*) 200 Mg Tablet, 200 MG PO DAILY for 5 Days, TAB Prov:TRAVIS HERRERA 12/20/16 Reported Medications Acyclovir* (Acyclovir*) 400 Mg Tablet, 400 MG PO TID, TAB 12/16/16 Docusate Sodium (COL-RITE) 50 Mg Capsule, 100 MG PO BID, CAP 12/16/16 Ascorbic Acid (Vitamin C) 500 Mg Tab, 500 MG PO BID, TAB 12/16/16 Ferrous Sulfate (Feosol) 325 Mg Tablet, BID, #60 05/13/16 Gemfibrozil* (Gemfibrozil*) 600 Mg Tablet, 600 BID, #60 05/13/16 Fluoxetine Hcl* (Fluoxetine Hcl*) 40 Mg Capsule, 60 DAILY, #30 05/13/16 Valacyclovir Hcl* (Valtrex*) 500 Mg Tablet 08/05/10 Simvastatin* (Zocor*) 20 Mg Tablet 08/05/10 Discontinued Reported Medications Cephalexin* (Cephalexin*) 500 Mg Capsule, #40 05/13/16 Pending Labs Laboratory Tests Test 12/20/16 06:02 12/20/16 06:10 Sodium Level 136mmol/L (135-144) Potassium Level 4.4mmol/L (3.5-5.1) Chloride Level 105mmol/L (97-110) Carbon Dioxide Level 21mmol/L (21-31) Anion Gap 14 (8-16) Blood Urea Nitrogen 5mg/dl (7-20) Creatinine 0.54mg/dl (0.44-1.00) Glucose Level 106mg/dl (70-220) Calcium Level 9.0mg/dl (8.4-10.2) White Blood Count 8.510^3/ul (4.8-10.8) Red Blood Count 3.9210^6/ul (4.20-5.40) Hemoglobin 10.2g/dl (12.0-16.0) Hematocrit 32.4% (37.0-47.0) Mean Corpuscular Volume 82.7fl (82.0-101.0) Mean Corpuscular Hemoglobin 26.0pg (29.0-33.0) Mean Corpuscular Hemoglobin Concent 31.5g/dl (32.0-37.0) Red Cell Distribution Width 17.6% (11.5-14.5) Platelet Count 05999^3/UL (140-415) Mean Platelet Volume 10.1fl (7.4-10.4) Neutrophils % 62.0% (39.0-77.0) Lymphocytes % 23.9% (15.0-51.0) Monocytes % 10.6% (0.0-11.0) Eosinophils % 2.7% (0.0-7.0) Basophils % 0.6% (0.0-2.0) Nucleated Red Blood Cells % 0.0/100WBC (0.0-0.0) Neutrophils # 5.310^3/ul (1.6-7.5) Lymphocytes # 2.010^3/ul (0.8-2.9) Monocytes # 0.910^3/ul (0.3-0.9) Eosinophils # 0.210^3/ul (0.0-0.5) Basophils # 0.110^3/ul (0.0-0.1) Nucleated Red Blood Cells # 0.010^3/ul (0.0-0.0) TRAVIS HERRERA Dec 20, 2016 13:11
== END 2016-12-20 13:50 | disposition home or self-care (01) | DRG 743 ==
LOC: SDS 11:01 → EDSTATUS 13:00 → SDS 17:24 → MS2 17:24
PROVIDERS: ATTEND Internal Medicine
PROC: 0UTC4ZZ Resection of Cervix, Percutaneous Endoscopic Approach (ICD-10-PCS; 2016-12-16)
PROC: 0UT74ZZ Resection of Bilateral Fallopian Tubes, Percutaneous Endoscopic Approach (ICD-10-PCS; 2016-12-16)
PROC: 0UT94ZZ Resection of Uterus, Percutaneous Endoscopic Approach (ICD-10-PCS; principal; 2016-12-16 13:00)
DX: D25.9 Leiomyoma of uterus, unspecified (principal); F32.9 Major depressive disorder, single episode, unspecified; E78.5 Hyperlipidemia, unspecified; J45.909 Unspecified asthma, uncomplicated; R19.7 Diarrhea, unspecified
CPT/HCPCS: 80048; 84703; 85025; 85610; 86850; 86900; 86901; 86920; 87040; 87075; 87086; 88305; 88331; 94640; 94664; J0690; J1170; J1200; J1644; J1885; J1956; J2175; J2250; J2270; J2274; J2405; J2710; J2765; J2795; J3480